=== PATIENT | female | born 1935 | race Hispanic/Latino ===

== ENCOUNTER 2017-11-23 14:36 | Inpatient (IN) | payer MEDICARE ==
[~2017-11-23] VITALS: Ht 147.3 cm; Wt 38.1 kg
[2017-11-23] MEDS ORDERED: ASPIRIN 325 MG TABLET ONE (14:44)
[2017-11-23 15:08] LABS: BASOPHILS % (AUTO) 0.4 % (0.0-5.0); EOSINOPHILS % (AUTO) 0.7 % (0.0-8.0); HEMATOCRIT 23.1 % (36-48); MEAN CORPUSCULAR HEMOGLOBIN 31.8 pg (27.0-33.0); MEAN CORPUSCULAR HGB CONC 33.8 g/dL (32.0-36.0); MONOCYTES % (AUTO) 4.7 % (3.0-13.0); NEUTROPHILS % (AUTO) 82.2 % (40.0-77.0); PLATELET COUNT (AUTO) 460 K/uL (130-400); RED BLOOD CELL COUNT(AUTO) 2.46 MIL/uL (4.00-5.50); RED CELL DISTRIBUTION WIDTH 13.3 % (11.0-15.5); WHITE BLOOD COUNT (AUTO) 9.3 K/uL (4.8-10.8)
[2017-11-23 15:46] LABS: POTASSIUM 4.1 mmol/L (3.5-5.1)
[2017-11-23 16:30] VITALS: BP 125/58
[2017-11-23] MEDS ORDERED: SODIUM CHLORIDE 0.9% 10 ML VIAL IVP PRN (17:45)
[2017-11-23 18:02] LABS: HEMATOCRIT 22.1 % (36-48)
[2017-11-23] MEDS ORDERED: NITROGLYCERIN 1GM/1 INCH PACKET TD STA (18:50)
[2017-11-23] MEDS: NITROGLYCERIN 1GM/1 INCH PACKET TD SCH (19:00)
[2017-11-23 19:57] LABS: CREATINE KINASE, TOTAL 23 U/L (21-232); MYOGLOBIN 53 ng/mL (10-92); TROPONIN I < 0.04 ng/mL (0.00-0.06)
[2017-11-23 20:00] VITALS: BP 132/60
[2017-11-23] MEDS: FUROSEMIDE 10 MG/ML 2ML VIAL IVP SCH (23:17)
[2017-11-24] VITALS (7 sets, daily range): BP systolic 98–121; BP diastolic 57–70
[2017-11-24] MEDS ORDERED: METO10TA3 PO (01:01)
[2017-11-24] MEDS ORDERED: CYCL30DR OU (01:01)
[2017-11-24] MEDS ORDERED: LISI-613 PO (01:01)
[2017-11-24] MEDS ORDERED: ATEN-189 PO (01:01)
[2017-11-24] MEDS ORDERED: RALO60TA PO (01:01)
[2017-11-24] MEDS ORDERED: AMLO5TAB7 PO (01:01)
[2017-11-24] MEDS ORDERED: CALC-1009 PO (01:01)
[2017-11-24] MEDS ORDERED: MELO-106 PO (01:01)
[2017-11-24] MEDS ORDERED: FERR325T22 PO (01:01)
[2017-11-24] MEDS ORDERED: LEVE250T2 PO (01:01)
[2017-11-24] MEDS ORDERED: SOLI5 PO (01:01)
[2017-11-24] MEDS ORDERED: ATEN1TAB3 PO (01:01)
[2017-11-24] MEDS ORDERED: TRAM50TA4 PO (01:01)
[2017-11-24] MEDS ORDERED: AEC81 PO (01:01)
[2017-11-24] MEDS ORDERED: FOLI1TAB85 PO (01:01)
[2017-11-24] MEDS: FUROSEMIDE 10 MG/ML 2ML VIAL IVP SCH (01:34)
[2017-11-24 02:17] LABS: CREATINE KINASE, TOTAL 21 U/L (21-232); MYOGLOBIN 47 ng/mL (10-92); TROPONIN I < 0.04 ng/mL (0.00-0.06)
[2017-11-24] MEDS: NITROGLYCERIN 1GM/1 INCH PACKET TD SCH ×3 (03:14→19:24)
[2017-11-24 06:38] LABS: CREATINE KINASE, TOTAL 26 U/L (21-232); MYOGLOBIN 51 ng/mL (10-92); TROPONIN I < 0.04 ng/mL (0.00-0.06)
[2017-11-24] MEDS ORDERED: ASPIRIN 81MG TAB.CHEW PO SCH (09:00)
[2017-11-24] MEDS ORDERED: PANTOPRAZOLE 40 MG/VIAL IVP SCH (09:00)
[2017-11-24] MEDS ORDERED: SODIUM CHLORIDE 0.9% 1000ML 1,000 ML IV ONE (09:26)
[2017-11-24] MEDS: SODIUM CHLORIDE 0.9% 1000ML 1,000 ML IV SCH (11:18)
[2017-11-24 14:37] LABS: CREATINE KINASE, TOTAL 18 U/L (21-232); MYOGLOBIN 55 ng/mL (10-92); TROPONIN I < 0.04 ng/mL (0.00-0.06)
[2017-11-24] MEDS ORDERED: TRAMADOL HCL 50 MG TABLET PO PRN (17:30)
[2017-11-24 19:29] LABS: HEMATOCRIT 30.7 % (36-48)
[2017-11-24] MEDS: MELOXICAM 7.5 MG TABLET PO SCH (21:22)
[2017-11-24] MEDS: LEVETIRACETAM 250 MG TABLET PO SCH (21:22)
[2017-11-24] MEDS: LISINOPRIL 20 MG TABLET PO SCH (21:22)
[2017-11-25] VITALS (19 sets, daily range): BP systolic 91–134; BP diastolic 46–59
[2017-11-25] MEDS: SODIUM CHLORIDE 0.9% 1000ML 1,000 ML IV SCH ×2 (00:43→10:26)
[2017-11-25] MEDS: NITROGLYCERIN 1GM/1 INCH PACKET TD SCH ×3 (03:22→20:36)
[2017-11-25 05:05] LABS: BASOPHILS % (AUTO) 0.6 % (0.0-5.0); EOSINOPHILS % (AUTO) 2.1 % (0.0-8.0); HEMATOCRIT 30.4 % (36-48); LYMPHOCYTES % (AUTO) 16.5 % (21.0-51.0); MEAN CORPUSCULAR HEMOGLOBIN 31.8 pg (27.0-33.0); MEAN CORPUSCULAR HGB CONC 34.7 g/dL (32.0-36.0); MEAN CORPUSCULAR VOLUME 91.7 fL (79-99); MONOCYTES % (AUTO) 5.5 % (3.0-13.0); NEUTROPHILS % (AUTO) 75.3 % (40.0-77.0); NUCLEATED RED BLOOD CELLS 0.1 % (0.0-0.19); PLATELET COUNT (AUTO) 378 K/uL (130-400); RED BLOOD CELL COUNT(AUTO) 3.31 MIL/uL (4.00-5.50); RED CELL DISTRIBUTION WIDTH 14.7 % (11.0-15.5); WHITE BLOOD COUNT (AUTO) 6.9 K/uL (4.8-10.8)
[2017-11-25 05:34] LABS: ALBUMIN 2.6 g/dL (3.5-5.0); BILIRUBIN,TOTAL 0.5 mg/dL (0.2-1.0); POTASSIUM 3.2 mmol/L (3.5-5.1); TOTAL PROTEIN, SERUM 5.5 g/dL (6.0-8.3)
[2017-11-25] MEDS ORDERED: PROPOFOL 10 MG/ML 20ML VIAL IV ONE (07:07)
[2017-11-25] MEDS ORDERED: PANTOPRAZOLE SODIUM 40 MG TABLET.DR PO SCH (08:28)
[2017-11-25] MEDS ORDERED: LIDOCAINE HCL-MPF 1% 2ML VIAL IVP PRN (08:45)
[2017-11-25] MEDS ORDERED: POTASSIUM CHLORIDE 20MEQ/100ML 100 ML IV PRN (08:45)
[2017-11-25] MEDS ORDERED: POTASSIUM CHLORIDE 10% ELIXIR 20 MEQ/15 ML UDCUP PO PRN (08:45)
[2017-11-25] MEDS: CHLORTHALIDONE PO SCH (09:00)
[2017-11-25] MEDS: ATENOLOL PO SCH (09:00)
[2017-11-25] MEDS ORDERED: ASPIRIN 81 MG EC TAB PO SCH (09:00)
[2017-11-25] MEDS: Cyclosporine (Restasis) 1 EACH OU SCH ×2 (09:00→20:42)
[2017-11-25] MEDS: LEVETIRACETAM 250 MG TABLET PO SCH ×2 (10:21→20:36)
[2017-11-25] MEDS: POTASSIUM CHLORIDE 20 MEQ ERTAB PO PRN ×3 (10:22→15:38)
[2017-11-25] MEDS: FOLIC ACID/VITAMIN B COMP W-C 1 MG CAPSULE PO SCH (10:24)
[2017-11-25] MEDS: METOCLOPRAMIDE 10 MG TABLET PO SCH (10:25)
[2017-11-25] MEDS: RALOXIFENE HCL 60 MG TABLET PO SCH (10:25)
[2017-11-25] MEDS: CALCIUM 600 + VITAMIN D 400 TABLET PO SCH (10:25)
[2017-11-25] MEDS: FERROUS SULFATE 325 MG TABLET.DR PO SCH (10:25)
[2017-11-25] MEDS: MELOXICAM 7.5 MG TABLET PO SCH ×2 (10:25→20:36)
[2017-11-25] MEDS: AMLODIPINE BESYLATE 5 MG TAB PO SCH (10:25)
[2017-11-25] MEDS: SUCRALFATE 1 GM/10 ML PO SCH ×2 (11:50→16:48)
[2017-11-25] MEDS: PANTOPRAZOLE SODIUM 40 MG TABLET.DR PO SCH (16:48)
[2017-11-25] MEDS: LISINOPRIL 20 MG TABLET PO SCH (20:36)
[2017-11-26 03:00] VITALS: BP 122/91
[2017-11-26] MEDS: NITROGLYCERIN 1GM/1 INCH PACKET TD SCH ×2 (03:06→11:00)
[2017-11-26 05:25] LABS: BASOPHILS % (AUTO) 0.4 % (0.0-5.0); EOSINOPHILS % (AUTO) 1.2 % (0.0-8.0); HEMATOCRIT 29.4 % (36-48); LYMPHOCYTES % (AUTO) 11.4 % (21.0-51.0); MEAN CORPUSCULAR HEMOGLOBIN 31.3 pg (27.0-33.0); MEAN CORPUSCULAR HGB CONC 33.8 g/dL (32.0-36.0); MEAN CORPUSCULAR VOLUME 92.6 fL (79-99); PLATELET COUNT (AUTO) 363 K/uL (130-400); RED BLOOD CELL COUNT(AUTO) 3.17 MIL/uL (4.00-5.50); RED CELL DISTRIBUTION WIDTH 14.5 % (11.0-15.5); WHITE BLOOD COUNT (AUTO) 9.4 K/uL (4.8-10.8)
[2017-11-26 05:39] LABS: ALBUMIN 2.3 g/dL (3.5-5.0); BILIRUBIN,TOTAL 0.4 mg/dL (0.2-1.0); CREATININE 0.6 mg/dL (0.5-1.5); POTASSIUM 4.1 mmol/L (3.5-5.1); TOTAL PROTEIN, SERUM 5.2 g/dL (6.0-8.3)
[2017-11-26] MEDS: SUCRALFATE 1 GM/10 ML PO SCH ×2 (06:57→12:49)
[2017-11-26] MEDS: PANTOPRAZOLE SODIUM 40 MG TABLET.DR PO SCH (06:57)
[2017-11-26 07:00] VITALS: BP 105/58
[2017-11-26] MEDS: MELOXICAM 7.5 MG TABLET PO SCH (08:39)
[2017-11-26] MEDS: FOLIC ACID/VITAMIN B COMP W-C 1 MG CAPSULE PO SCH (08:39)
[2017-11-26] MEDS: CALCIUM 600 + VITAMIN D 400 TABLET PO SCH (08:39)
[2017-11-26] MEDS: FERROUS SULFATE 325 MG TABLET.DR PO SCH (08:39)
[2017-11-26] MEDS: METOCLOPRAMIDE 10 MG TABLET PO SCH (08:39)
[2017-11-26] MEDS: AMLODIPINE BESYLATE 5 MG TAB PO SCH (08:39)
[2017-11-26] MEDS: LEVETIRACETAM 250 MG TABLET PO SCH (08:42)
[2017-11-26] MEDS: RALOXIFENE HCL 60 MG TABLET PO SCH (08:43)
[2017-11-26] MEDS: CHLORTHALIDONE PO SCH (08:47)
[2017-11-26] MEDS: ATENOLOL PO SCH (08:47)
[2017-11-26] MEDS: Cyclosporine (Restasis) 1 EACH OU SCH (08:47)
[2017-11-26] MEDS: SODIUM CHLORIDE 0.9% 1000ML 1,000 ML IV SCH (08:48)
[2017-11-26 11:00] VITALS: BP 97/54
[2017-11-26 16:00] VITALS: BP 100/49
== END 2017-11-26 16:30 | DRG 378 ==
LOC: EDH 14:36 → EDHIP 15:35 → 3AH 16:20
PROVIDERS: ADMIT Family Medicine; ATTEND Family Medicine
PROC: 0DB98ZX Excision of Duodenum, Via Natural or Artificial Opening Endoscopic, Diagnostic (ICD-10-PCS; principal; 2017-11-25)
PROC: 0DB78ZX Excision of Stomach, Pylorus, Via Natural or Artificial Opening Endoscopic, Diagnostic (ICD-10-PCS; 2017-11-25)
PROC: 0DB68ZX Excision of Stomach, Via Natural or Artificial Opening Endoscopic, Diagnostic (ICD-10-PCS; 2017-11-25)
PROC: 0DB58ZX Excision of Esophagus, Via Natural or Artificial Opening Endoscopic, Diagnostic (ICD-10-PCS; 2017-11-25)
PROC: 30233N1 Transfusion of Nonautologous Red Blood Cells into Peripheral Vein, Percutaneous Approach (ICD-10-PCS; 2017-11-25)
DX: K29.51 Unspecified chronic gastritis with bleeding (principal); D62 Acute posthemorrhagic anemia; E44.0 Moderate protein-calorie malnutrition; Z68.1 Body mass index [BMI] 19.9 or less, adult; I10 Essential (primary) hypertension; M19.90 Unspecified osteoarthritis, unspecified site; E03.9 Hypothyroidism, unspecified; K26.4 Chronic or unspecified duodenal ulcer with hemorrhage; G40.909 Epilepsy, unspecified, not intractable, without status epilepticus; I25.10 Atherosclerotic heart disease of native coronary artery without angina pectoris; M81.0 Age-related osteoporosis without current pathological fracture; K44.9 Diaphragmatic hernia without obstruction or gangrene; Z90.710 Acquired absence of both cervix and uterus; Z95.1 Presence of aortocoronary bypass graft; Z98.41 Cataract extraction status, right eye; Z98.42 Cataract extraction status, left eye; Z90.49 Acquired absence of other specified parts of digestive tract; Z88.8 Allergy status to other drugs, medicaments and biological substances; Z88.0 Allergy status to penicillin; Z82.3 Family history of stroke; Z82.49 Family history of ischemic heart disease and other diseases of the circulatory system; Z80.9 Family history of malignant neoplasm, unspecified
CPT/HCPCS: 36415; 36430; 43239; 71045; 80048; 80053; 82270; 82550; 83874; 84484; 85014; 85018; 85025; 86850; 86900; 86901; 86922; 88305; 93005; 97039; 99291; C9113; J1940; J2704; J7030; P9016

== ENCOUNTER 2017-12-26 18:11 | Emergency (ER) | payer MEDICARE ==
[~2017-12-26 18:11] MED LIST: AMLO5TAB7 PO; ATEN1TAB3 PO; CALC-1009 PO; CYCL30DR OU; FERR325T22 PO; FOLI1TAB85 PO; LEVE250T2 PO; LISI-613 PO; METO10TA3 PO; RALO60TA PO; SOLI5 PO; TRAM50TA4 PO
[2017-12-26 18:43] LABS: BASOPHILS % (AUTO) 0.7 % (0.0-5.0); EOSINOPHILS % (AUTO) 1.3 % (0.0-8.0); HEMATOCRIT 30.4 % (36-48); LYMPHOCYTES % (AUTO) 11.3 % (21.0-51.0); MEAN CORPUSCULAR HEMOGLOBIN 31.1 pg (27.0-33.0); MEAN CORPUSCULAR HGB CONC 33.3 g/dL (32.0-36.0); MEAN CORPUSCULAR VOLUME 93.1 fL (79-99); MONOCYTES % (AUTO) 4.2 % (3.0-13.0); NEUTROPHILS % (AUTO) 82.5 % (40.0-77.0); PLATELET COUNT (AUTO) 251 K/uL (130-400); RED BLOOD CELL COUNT(AUTO) 3.27 MIL/uL (4.00-5.50); RED CELL DISTRIBUTION WIDTH 15.2 % (11.0-15.5); WHITE BLOOD COUNT (AUTO) 9.9 K/uL (4.8-10.8)
[2017-12-26 18:55] LABS: INR 0.97 (0.85-1.15); PROTHROMBIN TIME 10.2 SEC (9.6-11.6)
[2017-12-26 18:56] LABS: POTASSIUM 3.4 mmol/L (3.5-5.1)
[2017-12-26 19:00] LABS: ALBUMIN 3.6 g/dL (3.5-5.0); BILIRUBIN,TOTAL 0.2 mg/dL (0.2-1.0); TOTAL PROTEIN, SERUM 6.7 g/dL (6.0-8.3)
== END 2017-12-26 20:01 | disposition home or self-care (01) ==
LOC: EDH 18:11
DX: R13.10 Dysphagia, unspecified (principal); R07.89 Other chest pain; I25.10 Atherosclerotic heart disease of native coronary artery without angina pectoris; I10 Essential (primary) hypertension; E78.5 Hyperlipidemia, unspecified; Z95.1 Presence of aortocoronary bypass graft; Z88.1 Allergy status to other antibiotic agents; Z88.6 Allergy status to analgesic agent; Z79.899 Other long term (current) drug therapy
CPT/HCPCS: 36415; 71045; 80053; 82150; 82550; 83690; 84484; 85025; 85610; 85730; 93005

== ENCOUNTER → 2018-01-08 | Outpatient (CLI) | payer MEDICARE | END | disposition home or self-care (01) | LOC: RAH 09:27 | PROVIDERS: ATTEND Family Medicine | DX: K21.9 Gastro-esophageal reflux disease without esophagitis (principal) | CPT/HCPCS: G8996; G8997; G8998; 74230; 92611 ==

== ENCOUNTER 2018-02-22 11:21 | Emergency (ER) | payer MEDICARE ==
[2018-02-22 12:34] LABS: APPEARANCE,URINE Cloudy (CLEAR); BILIRUBIN,URINE Negative (NEGATIVE); COLOR,URINE Yellow (YELLOW); GLUCOSE, URINE (UA) Negative (NEGATIVE); KETONES,URINE Trace mg/dL (NEGATIVE); LEUKOCYTE ESTERASE ,URINE Small (NEGATIVE); NITRATE,URINE Negative (NEGATIVE); OCCULT BLOOD,URINE Negative (NEGATIVE); PROTEIN,URINE Negative (NEGATIVE); UROBILINOGEN,URINE 0.2 mg/dL (0.2-1.0)
[2018-02-22 12:40] LABS: BASOPHILS % (AUTO) 0.6 % (0.0-5.0); HEMATOCRIT 33.3 % (36-48); LYMPHOCYTES % (AUTO) 22.3 % (21.0-51.0); MEAN CORPUSCULAR HEMOGLOBIN 29.9 pg (27.0-33.0); MEAN CORPUSCULAR HGB CONC 33.7 g/dL (32.0-36.0); MEAN CORPUSCULAR VOLUME 88.6 fL (79-99); MONOCYTES % (AUTO) 16.3 % (3.0-13.0); NEUTROPHILS % (AUTO) 57.8 % (40.0-77.0); PLATELET COUNT (AUTO) 259 K/uL (130-400); RED BLOOD CELL COUNT(AUTO) 3.75 MIL/uL (4.00-5.50); RED CELL DISTRIBUTION WIDTH 14.5 % (11.0-15.5); WHITE BLOOD COUNT (AUTO) 3.6 K/uL (4.8-10.8)
[2018-02-22 12:50] LABS: BACTERIA,URINE Rare /HPF (None Seen); RBC,URINE None Seen /HPF (0-1); WBC,URINE 0-1 /HPF (0-1)
[2018-02-22 12:51] LABS: HYALINE CASTS, URINE 0-1 /LPF (0-1 /LPF); MUCUS,URINE Few LPF (None Seen); SQUAMOUS EPITHELIAL CELL,UR Moderate /HPF (0-2)
[2018-02-22 13:01] LABS: ALBUMIN 3.6 g/dL (3.5-5.0); BILIRUBIN,TOTAL 0.6 mg/dL (0.2-1.0); TOTAL PROTEIN, SERUM 6.6 g/dL (6.0-8.3)
[2018-02-22] MEDS ORDERED: HYOSCYAMINE SULFATE 0.125 MG TAB.SUBL SL ONE (15:28)
[2018-02-22 15:53] LABS: OCCULT BLOOD STOOL SINGLE ONLY POSITIVE (NEGATIVE)
== END 2018-02-22 17:12 | disposition home or self-care (01) ==
LOC: EDH 11:21
DX: R10.84 Generalized abdominal pain (principal); R19.7 Diarrhea, unspecified; R11.0 Nausea; I10 Essential (primary) hypertension; E78.5 Hyperlipidemia, unspecified; I25.810 Atherosclerosis of coronary artery bypass graft(s) without angina pectoris; Z95.1 Presence of aortocoronary bypass graft; Z88.1 Allergy status to other antibiotic agents; Z88.8 Allergy status to other drugs, medicaments and biological substances
CPT/HCPCS: 36415; 74176; 80053; 81001; 82150; 82270; 82550; 83630; 83690; 84484; 85025; 87046; 87324; 93005